=== PATIENT | male | born 1965 | race Caucasian/White ===

== ENCOUNTER 2025-04-13 10:36 | Outpatient (CLI) | payer OTHER ==
[2025-04-13 13:24] LABS: #Basophils 0.06 10x3/uL (0.0-0.2); #Eosinophils 0.15 10x3/uL (0.0-0.7); #Monocytes 0.59 10x3/uL (0.11-0.59); #Neutrophils 2.57 10x3/uL (1.40-6.50); %Basophils 1.2 % (0.0-1.0); %Eosinophils 3.0 % (0.0-10.0); %Lymphocytes 33.5 % (21.0-51.0); %Monocytes 11.6 % (0.0-10.0); %Neutrophils 50.5 % (42.0-75.0); Hematocrit 48.8 % (42.0-52.0); Hemoglobin 16.6 g/dL (14.0-18.0); Mean Corpuscular Hemoglobin 30.9 pg (27.0-31.0); Mean Corpuscular Volume 90.9 fL (78.0-98.0); Platelet Count 200 10x3/uL (130-400); Red Blood Cell (RBC) Count 5.37 mill/uL (4.70-6.10); White Blood Cell (WBC) Count 5.08 10x3/uL (4.8-10.8)
[2025-04-13 13:41] LABS: ALT (SGPT) 96 U/L (Less than 45); AST (SGOT) 67 U/L (11-34); Albumin 4.4 g/dL (3.1-4.5); Alkaline Phosphatase 65 U/L (40-110); Anion Gap 17 mmol/L (10-20); BUN (Urea Nitrogen) 13 mg/dL (8.4-25.7); Bilirubin, Total 0.6 mg/dL (0.3-1.2); Calc. Creatinine Clearance 0 mL/min (70-130); Calcium 9.3 mg/dL (7.8-10.44); Carbon Dioxide 21 mmol/L (22-29); Chloride 108 mmol/L (98-107); Globulin 2.8 g/dL (2.4-3.5); Glucose 89 mg/dL (70-105); Potassium 4.0 mmol/L (3.5-5.1); Sodium 142 mmol/L (136-145)
== END 2025-04-13 10:37 | disposition home or self-care (01) ==
LOC: LABBT 10:36
PROVIDERS: ATTEND Orthopaedic Surgery
DX: Z01.818 Encounter for other preprocedural examination (principal); S83.231A Complex tear of medial meniscus, current injury, right knee, initial encounter
CPT/HCPCS: 80053; 85025; 93005; 93010

== ENCOUNTER 2025-04-20 07:01 | Day surgery (SDC) | payer OTHER ==
[2025-04-20] MEDS ORDERED: PROPOFOL 20 ML ONE ×2 (07:55→09:50)
[2025-04-20] MEDS ORDERED: fentaNYL PF 100 MCG/2 ML SYRINGE ONE (09:50)
[2025-04-20] MEDS ORDERED: CEFAZOLIN 2 GM VIAL ONE (10:02)
[2025-04-20] MEDS ORDERED: Ondansetron PF 4 MG/2 ML Vial ONE (10:36)
== END 2025-04-20 14:00 | disposition home or self-care (01) ==
LOC: SDC 07:01
PROVIDERS: ATTEND Orthopaedic Surgery
PROC: 0SBC0ZZ Excision of Right Knee Joint, Open Approach (ICD-10-PCS; principal; 2025-04-20)
DX: M23.303 Other meniscus derangements, unspecified medial meniscus, right knee (principal); M94.261 Chondromalacia, right knee
CPT/HCPCS: J0665; J1100; J2405; J2704